=== PATIENT | male | born 1995 | race Hispanic/Latino ===

== ENCOUNTER 2019-11-20 19:44 | Emergency (ER) | payer SELFPAY ==
[~2019-11-20] VITALS: Ht 175.3 cm; Wt 131.5 kg
--- NOTE | 2019-11-20 21:03 | Diagnostic Imaging Report ---
SHOULDER 2+VW RT - HOPD - 3 views HISTORY: Right shoulder pain. COMPARISON: None available. FINDINGS: There is anterior shoulder dislocation. There is cortical irregularity of the inferior glenoid which may represent associated osseous Bankart lesion. SOFT tissues: No focal soft tissue abnormality. Others: The partially imaged right hemithorax is clear. IMPRESSION: Anterior shoulder dislocation with probable associated osseous Bankart lesion. Signed by: Lyndsey Lang MD on 11/20/2019 8:59 PM
--- NOTE | 2019-11-20 22:05 | Diagnostic Imaging Report ---
X-ray right shoulder 3 views HISTORY: Pain COMPARISON: Same-day shoulder radiographs FINDINGS: Bones: No acute displaced fracture. Osseous alignment is within normal limits. Subtle inferior glenoid cortical contour irregularity Joints: The joint spaces are well-maintained. Mild acromioclavicular joint widening, 8 mm in width. Soft tissues: The soft tissues appear unremarkable. IMPRESSION: Successful reduction, the right glenohumeral joint is no longer dislocated. Subtle inferior glenoid cortical contour irregularity could be due to bony Bankart injury. Possible low-grade acromioclavicular separation. Signed by: Osmin De La Rosa DO on 11/20/2019 10:02 PM
--- NOTE | 2019-11-20 22:11 | Emergency Department Note ---
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 Similar sx one year ago when reaching forward and had dislocated shoulder that needed to be reduced. Denies numbness, tingling, weakness. Historian: Patient Arrival Mode: Car General Internist And Physician Leader Required: No Onset (how long ago): hour(s) (1) Location: rt shoulder Quality: sharp Radiation: Reports non-radiation Duration (how long): hour(s) (1) Timing of current episode: constant Progression: unchanged Chronicity: recurrent (one time in past - about one year ago) Context: Denies recent illness, Denies trauma/injury Relieving factors: immobilization Exacerbating factors: movement Associated symptoms: Reports denies other symptoms; Denies confusion, Denies syncope, Denies weakness Past Medical/Family History Physician Review I have reviewed the patient's past medical and family history. Any updates have been documented here. Past Medical History Recent Fever: No Clinical Suspicion of Infectio: No New/Unexplained Change in Ment: No Past Medical History: None Past Surgical History: None Social History Smoking Cessation: Never Smoker Counseling Performed: No Alcohol Use: None Any Illegal Drug Use: No Physically hurt or threatened: No Other Any Pre-Existing Lines (PICC,: No Review of Systems Review of Systems Constitutional: Reports no symptoms EENTM: Denies ear pain, Denies ear discharge Cardiovascular: Denies chest pain, Denies palpitations, Denies syncope Respiratory: Reports no symptoms Gastrointestinal: Reports no symptoms Musculoskeletal: Reports as per HPI Neurological: Reports no symptoms; Denies numbness, Denies paresthesia, Denies tingling, Denies weakness Psychological: Reports no symptoms Review of other systems: All other systems negative Physical Exam Related Data Allergies: Coded Allergies: No Known Allergies (Unverified , 11/20/19) Triage Vital Signs Vital Signs Date Time Temp Pulse Resp B/P (MAP) Pulse Ox O2 Delivery O2 Flow Rate FiO2 11/20/19 19:50 98.7 105 20 163/92 97 Room Air Physical Exam CONSTITUTIONAL Constitutional: Present well-developed, Present well-nourished HENT HENT: Present normocephalic, Present atraumatic HENT L/R: Present left ext ear normal, Present right ext ear normal EYES Eyes: Reports conjunctivae normal; Denies left eye discharge, Denies right eye discharge NECK Neck: Present ROM normal, Present supple PULMONARY Pulmonary: Present effort normal, Present breath sounds normal; Absent respiratory distress CARDIOVASCULAR Cardiovascular: Present regular rhythm, Present heart sounds normal, Present intact distal pulses, Present capillary refill normal, Present normal rate GASTROINTESTINAL Abdominal: Present soft GENITOURINARY SKIN Skin: Present warm, Present rash MUSCULOSKELETAL Musculoskeletal: Present tenderness (Right shoulder); Absent ROM normal (ROM limited in rt shoulder due to pain) NEUROLOGICAL Neurological: Present no gross motor or sensory deficits; Absent sensory deficit, Absent weakness PSYCHOLOGICAL Psychological: Present mood/affect normal Results Imaging Imaging results reviewed: Yes Impressions 1st: anterior dislocation. 2nd/post reduction: successfully reduced Imaging Comments Procedure: [id number] HOPD/SHOULDER 2+VW RT - HOPD Exam Date: 11/20/19 Exam Time: 2034 REPORT STATUS: Signed SHOULDER 2+VW RT - HOPD - 3 views HISTORY: Right shoulder pain. COMPARISON: None available. FINDINGS: There is anterior shoulder dislocation. There is cortical irregularity of the inferior glenoid which may represent associated osseous Bankart lesion. SOFT tissues: No focal soft tissue abnormality. Others: The partially imaged right hemithorax is clear. IMPRESSION: Anterior shoulder dislocation with probable associated osseous Bankart lesion. Signed by: Lyndsey Lang MD on 11/20/2019 8:59 PM X-ray right shoulder 3 views HISTORY: Pain COMPARISON: Same-day shoulder radiographs FINDINGS: Bones: No acute displaced fracture. Osseous alignment is within normal limits. Subtle inferior glenoid cortical contour irregularity Joints: The joint spaces are well-maintained. Mild acromioclavicular joint widening, 8 mm in width. Soft tissues: The soft tissues appear unremarkable. IMPRESSION: Successful reduction, the right glenohumeral joint is no longer dislocated. Subtle inferior glenoid cortical contour irregularity could be due to bony Bankart injury. Possible low-grade acromioclavicular separation. Signed by: Osmin De L aRosa DO on 11/20/2019 10:02 PM Dictated By: OSMIN DE LA ROSA DO 01 Transcribed By: SD on 11/20/192201 Procedures Orthopedic Joint Reduction Time out performed: Yes Side: right Joint reduction location: shoulder Analgesia: none Shoulder technique used (if ap: other (Rhoades maneuver) Technique used: other (trapezius, deltoid, bicep massage) Post-reduction neuor exam: intact Post-reduction vascular exam: intact Post-reduction xrays obtained: Yes Xray results: reduced Splint applied: Yes (shoulder immobilizer) Patient tolerated procedure: well Assessment & Plan Medical Decision Making MDM Fracture, rotator cuff tear, shoulder dislocation Assessment & Plan Final Impression: (1) Shoulder joint dislocation Depart Disposition: HOME, SELF-CARE Last Vital Signs Date Time Temp Pulse Resp B/P (MAP) Pulse Ox O2 Delivery O2 Flow Rate FiO2 11/20/19 19:50 98.7 105 20 163/92 97 Room Air RUDY MAN MD Nov 20, 2019 20:47
== END 2019-11-20 22:12 | disposition home or self-care (01) ==
LOC: FSED 20:15
DX: S43.084A Other dislocation of right shoulder joint, initial encounter (principal); X50.3XXA Overexertion from repetitive movements, initial encounter
CPT/HCPCS: 99283